=== PATIENT | female | born 1970 | race Caucasian/White ===

== ENCOUNTER 2021-04-27 08:53 | Outpatient (RCR) | payer BC ==
[~2021-04-27 08:53] MED LIST: CELEXA40 MG PO; LEVAQUIN 750MG750 M1 PO; MIRENA52 MG IY; NORVASC 5MG5 MG/TAB PO; PREDNISONE20 MG PO; PRILOSEC 20MG20 MG PO; SYNTHROID 0.0.025 MG PO; TAMIFLU 75MG75 MG PO; TUSS PO
== END 2021-05-24 | disposition home or self-care (01) ==
LOC: WSST
DX: R13.10 Dysphagia, unspecified (principal)

== ENCOUNTER → 2021-05-17 | Outpatient (CLI) | payer BC | LOC: COL.RAD 05-03 09:00 | DX: K21.9 Gastro-esophageal reflux disease without esophagitis (principal) ==

== ENCOUNTER → 2021-07-10 | Outpatient (CLI) | payer BC | LOC: COL.PUL 09:29 | DX: J45.40 Moderate persistent asthma, uncomplicated (principal); J34.1 Cyst and mucocele of nose and nasal sinus | CPT/HCPCS: Q9967 ==